=== PATIENT | male | born 1965 | race Hispanic/Latino ===

== ENCOUNTER 2017-11-03 16:12 | Inpatient (IN) | payer OTHER ==
[~2017-11-03] VITALS: Ht 172.7 cm; Wt 104.8 kg
[2017-11-03 17:00] LABS: BASOPHILS % 0.6 % (0.0-1.0); EOSINOPHILS # (AUTO) 0.2 (0.0-0.4); EOSINOPHILS % 3.2 % (0.0-6.0); HEMATOCRIT 45.1 % (38.2-49.6); HEMOGLOBIN 15.7 g/dL (14.0-18.0); LYMPHOCYTES # (AUTO) 1.6 (1.0-3.2); LYMPHOCYTES % 22.4 % (18.0-39.1); MEAN CORPUSCULAR HEMOGLOBIN 31.3 pg (28-32); MEAN CORPUSCULAR HGB CONC 34.8 g/dL (31-35); MEAN CORPUSCULAR VOLUME 89.8 fL (81-99); MONOCYTES # (AUTO) 0.4 (0.2-0.8); MONOCYTES % 5.3 % (4.4-11.3); NEUTROPHILS # (AUTO) 4.7 (2.1-6.9); NEUTROPHILS % 68.1 % (38.7-80.0); PLATELET COUNT 197 x10e3/uL (140-360); RED BLOOD COUNT 5.02 x10e6/uL (4.3-5.7); RED CELL DISTRIBUTION WIDTH 13.2 % (11.7-14.4)
[2017-11-03 17:11] LABS: ALANINE AMINOTRANSFERASE 300 IU/L (0-55); ALBUMIN 4.2 g/dL (3.5-5.0); ALBUMIN/GLOBULIN RATIO 1.1 (0.8-2.0); ALKALINE PHOSPHATASE 161 IU/L (40-150); ANION GAP 16.8 mmol/L (8-16); BLOOD UREA NITROGEN 10 mg/dL (7-26); BUN/CREATININE RATIO 11 (6-25); CARBON DIOXIDE 25 mmol/L (22-29); CHLORIDE 103 mmol/L (98-107); CREATINE KINASE 98 IU/L (30-200); CREATININE, SERUM 0.94 mg/dL (0.72-1.25); EST GLOMERULAR FILTRATION RATE > 60 ML/MIN (60-); GLUCOSE 97 mg/dL (74-118); POTASSIUM 3.8 mmol/L (3.5-5.1); SODIUM 141 mmol/L (136-145)
--- NOTE | 2017-11-03 18:29 | Diagnostic Imaging Report ---
Examination: Single AP view of the chest. COMPARISON: None. INDICATION: Hepatitis, chest pain DISCUSSION: Lines/tubes: None. Lungs: The lungs are well inflated and clear. There is no evidence of pneumonia or pulmonary edema. Pleura: There is no pleural effusion or pneumothorax. Heart and mediastinum: The heart and the mediastinum are unremarkable. Bones and soft tissues: No acute bony abnormalities. IMPRESSION: 1. No acute cardiopulmonary abnormalities. Signed by: Dr. Charlie Ojeda M.D. on 11/03/2017 6:26 PM
--- NOTE | 2017-11-03 18:55 | Diagnostic Imaging Report ---
EXAMINATION: CT of the abdomen and pelvis with contrast. TECHNIQUE: Helical CT images of the abdomen and pelvis were performed from the lung bases to the lesser trochanters after the intravenous administration of 100 cc of Isovue 300 and the oral administration of none. Coronal and sagittal reformatted images were obtained. Dose modulation, iterative reconstruction, and/or weight based adjustment of the mA/kV was utilized to reduce the radiation dose to as low as reasonably achievable. COMPARISON: None. CLINICAL HISTORY:Abdominal pain, jaundice DISCUSSION: ABDOMEN/PELVIS: LOWER THORAX:Unremarkable. HEPATOBILIARY: No focal hepatic lesions. Common bile duct mildly dilated 9 mm. Multiple gallstones within the common bile duct including adjacent to the ampulla of Vater and within the mid to distal portion measuring up to 7 mm in axial dimension. Gallstones. SPLEEN: No splenomegaly. PANCREAS: No focal masses or ductal dilatation. ADRENALS: No adrenal nodules. KIDNEYS/URETERS: Bilateral renal cysts, largest kidney 4 cm. PELVIC ORGANS/BLADDER: The bladder is normal. PERITONEUM/RETROPERITONEUM: No free air or fluid. LYMPH NODES: No intra-abdominal, retroperitoneal, pelvic or inguinal lymphadenopathy. VESSELS: Unremarkable. GI TRACT: No distention. Scattered diverticulosis. No inflammatory change. BONES AND SOFT TISSUE: No bony destructive lesions. No soft tissue abnormalities. IMPRESSION: Cholelithiasis and choledocholithiasis with multiple calcified stones in the mildly dilated common bile duct. Signed by: Dr. Charlie Ojeda M.D. on 11/03/2017 6:52 PM
[2017-11-03] MEDS ORDERED: ZANTAC 7575 MG PO (19:18)
[2017-11-03 21:27] LABS: CLARITY,URINE SL CLOUDY (CLEAR); COLOR,URINE YELLOW (YELLOW)
[2017-11-03 21:29] LABS: BILIRUBIN,URINE 1+ (NEGATIVE); KETONES,URINE NEGATIVE (NEGATIVE); LEUKOCYTE ESTERASE ,URINE NEGATIVE (NEGATIVE); NITRITE,URINE NEGATIVE (NEGATIVE); PROTEIN,URINE DIPSTICK NEGATIVE (NEGATIVE); URINE UROBILINOGEN 0.2 mg/dL (0.2 - 1)
[2017-11-03] MEDS: PIPER-TAZ 3.375 GM 50 ML IV SCH (21:44)
[2017-11-03] MEDS: HYDROMORPHONE 1MG/1ML INJ IV PRN (21:44)
[2017-11-03] MEDS: ONDANSETRON HCL INJ 2 MG/ML VIAL IV PRN (21:45)
[2017-11-03] MEDS: D5.45%NS/KCL 20MEQ 1,000 ML IV SCH (22:00)
[2017-11-03] MEDS ORDERED: IOPAMIDOL 370 MG/ML 200 ML INFUS..BTL INJ ONE (22:36)
[2017-11-03] MEDS ORDERED: SODIUM CHLORIDE 0.9% 50ML 50 ML ONE (22:36)
[2017-11-04] MEDS ORDERED: PIPER-TAZ 3.375 GM / NS 50ML IV SCH (01:00)
[2017-11-04] MEDS ORDERED: ASPIRIN EC81 MG PO (01:12)
[2017-11-04] MEDS ORDERED: LISINOPRIL10 MG PO (01:12)
[2017-11-04] MEDS: HYDROMORPHONE 1MG/1ML INJ IV PRN ×2 (06:34→13:05)
[2017-11-04] MEDS: PIPER-TAZ 3.375 GM 50 ML IV SCH ×4 (06:34→23:54)
[2017-11-04] MEDS: ONDANSETRON HCL INJ 2 MG/ML VIAL IV PRN ×2 (06:34→13:03)
[2017-11-04 06:58] LABS: BASOPHILS % 0.5 % (0.0-1.0); EOSINOPHILS # (AUTO) 0.2 (0.0-0.4); EOSINOPHILS % 3.5 % (0.0-6.0); HEMATOCRIT 41.4 % (38.2-49.6); HEMOGLOBIN 14.6 g/dL (14.0-18.0); LYMPHOCYTES # (AUTO) 1.9 (1.0-3.2); LYMPHOCYTES % 29.6 % (18.0-39.1); MEAN CORPUSCULAR HEMOGLOBIN 31.3 pg (28-32); MEAN CORPUSCULAR HGB CONC 35.3 g/dL (31-35); MEAN CORPUSCULAR VOLUME 88.7 fL (81-99); MONOCYTES # (AUTO) 0.5 (0.2-0.8); MONOCYTES % 7.8 % (4.4-11.3); NEUTROPHILS # (AUTO) 3.6 (2.1-6.9); NEUTROPHILS % 58.3 % (38.7-80.0); PLATELET COUNT 169 x10e3/uL (140-360); RED BLOOD COUNT 4.67 x10e6/uL (4.3-5.7)
[2017-11-04 07:29] LABS: ALANINE AMINOTRANSFERASE 290 IU/L (0-55); ALBUMIN 3.6 g/dL (3.5-5.0); ALBUMIN/GLOBULIN RATIO 1.1 (0.8-2.0); ALKALINE PHOSPHATASE 153 IU/L (40-150); AMYLASE 47 U/L (25-125); ANION GAP 12.1 mmol/L (8-16); BLOOD UREA NITROGEN 8 mg/dL (7-26); BUN/CREATININE RATIO 9 (6-25); CALCIUM 9.2 mg/dL (8.4-10.2); CARBON DIOXIDE 26 mmol/L (22-29); CHLORIDE 106 mmol/L (98-107); CREATININE, SERUM 0.94 mg/dL (0.72-1.25); EST GLOMERULAR FILTRATION RATE > 60 ML/MIN (60-); GLUCOSE 106 mg/dL (74-118); LIPASE 47 U/L (8-78); POTASSIUM 4.1 mmol/L (3.5-5.1); SODIUM 140 mmol/L (136-145)
--- NOTE | 2017-11-04 11:27 | Diagnostic Imaging Report ---
EXAM: Right Upper Quadrant Ultrasound INDICATION: \S\elvated lfts COMPARISON: CT abdomen and pelvis 11/03/2017 TECHNIQUE: Transverse and longitudinal images of the right upper abdomen were obtained. FINDINGS: Liver: Size: 17.7 cm in the right midclavicular line, enlarged Appearance: Increased echogenicity, smooth contour Mass: No focal masses Gallbladder: Stones/Sludge: Gallbladder lumen is full of echogenic material with shadowing, with the largest stone located in the neck measuring 0.6 cm Wall: 0.5 cm Appearance: No wall thickening, pericholecystic fluid or hydrops. Sonographic Winchester's Sign: Negative Bile Ducts: Intrahepatic Ducts: No dilatation Extrahepatic Ducts: Common bile duct measures 0.6 cm, no dilatation Pancreas: Obscured due to overlying bowel gas. Kidneys: Length: Right 11.2 cm Echogenicity: Normal Collecting System: No hydronephrosis Stone: None Cyst/Mass: None Vessels: Aorta: Visualized portions are normal Inferior Vena Cava: Visualized portions are normal Main Portal Vein: 1.2 cm, normal size with hepatopedal flow. Free Fluid: No ascites or pleural effusion IMPRESSION: 1. Cholelithiasis and mild gallbladder wall thickening. No definite sonographic evidence of acute cholecystitis. 2. Hepatomegaly with diffuse fatty infiltration. No focal lesions. Signed by: Dr. John Yanez M.D. on 11/04/2017 11:24 AM
[2017-11-04] MEDS: D5.45%NS/KCL 20MEQ 1,000 ML IV SCH ×2 (12:30→23:52)
[2017-11-04] MEDS ORDERED: GADOBENATE DIMEGLUMINE 1 ML IV ONE (12:49)
--- NOTE | 2017-11-04 14:52 | Diagnostic Imaging Report ---
EXAMINATION: MRI Abdomen with and without contrast. TECHNIQUE: Axial T1 nonfat sat in and out of phase, axial T2 fat sat, coronal T2 nonfat sat, axial DWI and ADC MR images of the abdomen were obtained before and after the administration of 20 cc of gadolinium. Axial T1 fat sat GRE dynamic images in precontrast, arterial, venous and delayed phases were obtained. Heavily T2-weighted MRCP images were also performed, including thick and thin slab MRCP ASSETT, 3-D breath-hold FRFSE and 3-D reconstructions. CLINICAL HISTORY:Suspected CBD stone, abdominal pain COMPARISON: CT abdomen and pelvis 11/03/2017 FINDINGS: Exam is markedly limited due to breathing motion artifact/patient unable to hold breath. LOWER THORAX: Unremarkable. LIVER: The hepatic size and contour are normal.. No hepatic signal abnormality. No focal hepatic lesions. BILIARY: No intrahepatic biliary ductal dilation. The common bile duct is in the upper limit of normal in caliber, measuring approximately 6 mm at the raj hepatis and 4 mm at the pancreatic head (series 11, image 19-20). Normal luminal contour.. Layering 7 mm filling defect in the distal portion of the CBD proximal to the ampulla (series 10, image 98), likely corresponding to the previously visualized intraluminal stone on CT dated 11/03/2017. No other filling defects are noted. Gallbladder lumen is filled with T2 hypointense material, likely representing a combination of stones and sludge, with a 1.6 cm T2 hypointense oval-shaped stone (series 6, image 21). No wall thickening or pericholecystic fluid. PANCREAS: No mass or ductal dilatation. SPLEEN: No splenomegaly. ADRENALS: No nodules. KIDNEYS: No hydronephrosis or solid enhancing mass in the imaged portion of the kidneys. Stable 2.3 cm T2 hyperintense, T1 hypointense nonenhancing simple cyst in the interpolar left kidney (series 5, image 30). PERITONEUM / RETROPERITONEUM: No upper abdominal free fluid. GI TRACT: Visualized bowel shows no dilation or obstruction. LYMPH NODES: No upper abdominal lymphadenopathy. VESSELS: The celiac trunk, superior and inferior mesenteric and bilateral renal arteries are patent. The portal, superior mesenteric and splenic veins are patent. No collateral circulation. BONES AND SOFT TISSUES: No abnormal bone marrow signal. No soft tissue abnormalities. IMPRESSION: 1. Layering 7 mm filling defect in the distal portion of the CBD proximal to the ampulla likely corresponds to the previously visualized intraluminal stone on CT dated 11/03/2017. No other CBD intraluminal filling defects are noted. 2. Cholelithiasis, without MR evidence of cholecystitis. 3. Common bile duct is at the upper limit of normal. No intrahepatic biliary ductal dilation. Signed by: Dr. John Yanez M.D. on 11/04/2017 2:48 PM
[2017-11-04 16:51] VITALS: BP 138/77
[2017-11-04 17:28] VITALS: BP 138/77
--- NOTE | 2017-11-04 19:40 | Consultation ---
DATE OF CONSULTATION: November 04, 2017 This is a 52-year-old gentleman who presented to the hospital because of some abdominal pain and jaundice for 3 days. The patient denies any fever or chills along with this problem. His workup so far revealed that he is jaundiced with bilirubin of 8.9, AST 144 and ALT 290 and alkaline phosphatase 153. His CBC appears to be normal. He did have an abdominal ultrasound which showed cholelithiasis with hepatomegaly and fatty liver. He had MRCP which showed 7 mm filling defect in the distal common bile duct likely secondary to stone. He also had a CAT scan of the abdomen and pelvis which showed again cholelithiasis with choledocholithiasis. His other medical problems are significant for hyperlipidemia. ALLERGIES: NONE. SOCIAL HISTORY: No alcohol use. FAMILY HISTORY: Noncontributory. REVIEW OF SYSTEMS: Denies any chest pain. No shortness of breath. Denies any dysphagia or odynophagia. Denies any dysuria or hematuria or any kind of syncopal episode. PHYSICAL EXAMINATION GENERAL: The patient is awake, alert, appears to be stable and not in any acute distress. VITAL SIGNS: Afebrile with stable vital signs. HEENT: Normocephalic, atraumatic. Sclerae anicteric. NECK: Supple. HEART: Sounds regular. LUNGS: Clear. ABDOMEN: Soft. There is some tenderness at the epigastric area. No rebound or mass. EXTREMITIES: No edema or clubbing. LABORATORY DATA: CBC appears to be okay. Bilirubin 8.3. AST 144, ALT 290, alkaline phosphatase 153. Ultrasound, CAT scan and MRCP as noted before. ASSESSMENT: Abdominal pain. The patient has gallstone with likely choledocholithiasis. Liver enzymes elevated. RECOMMENDATIONS: We will proceed with ERCP for further evaluation. Then the patient will need to have cholecystectomy. Job#: [id number] GH cc:NIKKI ARCE MD
[2017-11-04 20:00] VITALS: BP 138/77
[2017-11-04 20:45] VITALS: BP 152/76
[2017-11-05] VITALS (8 sets, daily range): BP systolic 112–151; BP diastolic 58–70
[2017-11-05] MEDS: PIPER-TAZ 3.375 GM 50 ML IV SCH ×3 (05:36→18:50)
[2017-11-05 05:47] LABS: HEMATOCRIT 41.2 % (38.2-49.6); HEMOGLOBIN 14.3 g/dL (14.0-18.0); MEAN CORPUSCULAR HEMOGLOBIN 31.2 pg (28-32); MEAN CORPUSCULAR HGB CONC 34.7 g/dL (31-35); MEAN CORPUSCULAR VOLUME 89.8 fL (81-99); PLATELET COUNT 174 x10e3/uL (140-360); RED BLOOD COUNT 4.59 x10e6/uL (4.3-5.7); RED CELL DISTRIBUTION WIDTH 13.2 % (11.7-14.4)
[2017-11-05 05:56] LABS: INR 1.04; PROTHROMBIN TIME 12.8 seconds (11.9-14.5)
[2017-11-05 06:03] LABS: ALANINE AMINOTRANSFERASE 288 IU/L (0-55); ALBUMIN 3.4 g/dL (3.5-5.0); ALBUMIN/GLOBULIN RATIO 1.1 (0.8-2.0); ALKALINE PHOSPHATASE 158 IU/L (40-150); ANION GAP 11.9 mmol/L (8-16); BLOOD UREA NITROGEN 7 mg/dL (7-26); BUN/CREATININE RATIO 6 (6-25); CALCIUM 9.3 mg/dL (8.4-10.2); CARBON DIOXIDE 26 mmol/L (22-29); CHLORIDE 105 mmol/L (98-107); CREATININE, SERUM 1.13 mg/dL (0.72-1.25); EST GLOMERULAR FILTRATION RATE > 60 ML/MIN (60-); GLUCOSE 108 mg/dL (74-118); POTASSIUM 3.9 mmol/L (3.5-5.1); SODIUM 139 mmol/L (136-145)
[2017-11-05] MEDS ORDERED: HYDRALAZINE HCL 20 MG/ML VIAL IV PRN (06:15)
[2017-11-05 07:12] LABS: EOSINOPHILS % (MANUAL) 5 % (0-7); LYMPHOCYTES % (MANUAL) 36 % (19-48); MONOCYTES % (MANUAL) 5 % (3.4-9.0); NEUTROPHILS % (MANUAL) 52 % (40-74)
[2017-11-05 07:13] LABS: PLATELET ESTIMATE ADEQUATE; PLATELET MORPHOLOGY COMMENT NORMAL; RBC MORPHOLOGY COMMENT NORMAL
[2017-11-05] MEDS ORDERED: IOPAMIDOL 200 MG/ML 20 ML VIAL IT ONE (07:42)
[2017-11-05] MEDS ORDERED: BENZOCAINE/TETRACAINE/BUTAMBEN AERO SPRAY 56 GM CAN ONE (07:42)
[2017-11-05] MEDS ORDERED: INDOMETHACIN 50 MG SUPP.RECT RC ONE (08:59)
[2017-11-05] MEDS: LACTATED RINGER'S 1,000 ML IV SCH ×2 (10:41→18:50)
[2017-11-05] MEDS: HYDROMORPHONE 1MG/1ML INJ IV PRN ×3 (11:08→20:07)
[2017-11-05] MEDS ORDERED: LABETALOL HCL 5 MG/ML 20ML VIAL ONE (17:03)
[2017-11-05] MEDS ORDERED: GLUCAGON FOR INJ 1 MG VIAL ONE (17:03)
[2017-11-05] MEDS ORDERED: PROPOFOL IV EMULSION 10 MG/ML 20 ML VIAL ONE (17:03)
[2017-11-05] MEDS ORDERED: KETAMINE HCL INJ 50 MG/ML 10 ML VIAL ONE (18:09)
[2017-11-05] MEDS ORDERED: MIDAZOLAM HCL 2 MG/2 ML VIAL ONE (18:09)
[2017-11-05] MEDS ORDERED: FENTANYL CITRATE/PF 100MCG/2 ML INJ ONE (18:09)
[2017-11-05] MEDS: ONDANSETRON HCL INJ 2 MG/ML VIAL IV PRN (19:59)
[2017-11-06] VITALS (9 sets, daily range): BP systolic 128–148; BP diastolic 57–81
[2017-11-06] MEDS: PIPER-TAZ 3.375 GM 50 ML IV SCH ×5 (00:22→23:42)
[2017-11-06] MEDS: ONDANSETRON HCL INJ 2 MG/ML VIAL IV PRN ×4 (00:30→20:02)
[2017-11-06] MEDS: HYDROMORPHONE 1MG/1ML INJ IV PRN ×5 (00:35→20:03)
[2017-11-06] MEDS: LACTATED RINGER'S 1,000 ML IV SCH ×3 (03:14→18:14)
[2017-11-06 05:41] LABS: BASOPHILS % 0.2 % (0.0-1.0); EOSINOPHILS # (AUTO) 0.1 (0.0-0.4); EOSINOPHILS % 0.7 % (0.0-6.0); HEMATOCRIT 43.6 % (38.2-49.6); HEMOGLOBIN 15.3 g/dL (14.0-18.0); LYMPHOCYTES # (AUTO) 1.3 (1.0-3.2); LYMPHOCYTES % 15.1 % (18.0-39.1); MEAN CORPUSCULAR HEMOGLOBIN 31.4 pg (28-32); MEAN CORPUSCULAR HGB CONC 35.1 g/dL (31-35); MEAN CORPUSCULAR VOLUME 89.3 fL (81-99); MONOCYTES # (AUTO) 0.6 (0.2-0.8); MONOCYTES % 6.8 % (4.4-11.3); NEUTROPHILS # (AUTO) 6.8 (2.1-6.9); NEUTROPHILS % 76.9 % (38.7-80.0); PLATELET COUNT 187 x10e3/uL (140-360); RED BLOOD COUNT 4.88 x10e6/uL (4.3-5.7); RED CELL DISTRIBUTION WIDTH 13.3 % (11.7-14.4)
[2017-11-06 06:01] LABS: ALANINE AMINOTRANSFERASE 285 IU/L (0-55); ALBUMIN 3.2 g/dL (3.5-5.0); ALBUMIN/GLOBULIN RATIO 1.1 (0.8-2.0); ALKALINE PHOSPHATASE 169 IU/L (40-150); ANION GAP 13.9 mmol/L (8-16); BLOOD UREA NITROGEN 13 mg/dL (7-26); BUN/CREATININE RATIO 13 (6-25); CALCIUM 8.9 mg/dL (8.4-10.2); CARBON DIOXIDE 26 mmol/L (22-29); CHLORIDE 104 mmol/L (98-107); CREATININE, SERUM 1.01 mg/dL (0.72-1.25); EST GLOMERULAR FILTRATION RATE > 60 ML/MIN (60-); GLUCOSE 110 mg/dL (74-118); POTASSIUM 3.9 mmol/L (3.5-5.1); SODIUM 140 mmol/L (136-145)
[2017-11-06 06:15] LABS: ALBUMIN 3.1 g/dL (3.5-5.0); BILIRUBIN,DIRECT 4.5 mg/dL (0.0-0.5)
[2017-11-06] MEDS ORDERED: BUPIVACAINE 0.25%/EPI 30ML SDV INJ ONE (07:57)
--- NOTE | 2017-11-06 09:48 | Operative Report ---
DATE OF PROCEDURE: November 06, 2017 PREOPERATIVE DIAGNOSIS: Cholecystitis. POSTOPERATIVE DIAGNOSIS: Cholecystitis. OPERATIVE PROCEDURE: Laparoscopic cholecystectomy. ANESTHESIA: General endotracheal, Dr. Borges. INDICATIONS FOR SURGERY: The patient is a 52-year-old male with a history of abdominal pain and gallstones seen. The patient also had a bile duct stone, which was removed by ERCP. The patient then consented for laparoscopic cholecystectomy. Attendant risks discussed. PROCEDURE FINDINGS: Large stone in the neck of the gallbladder. DESCRIPTION OF PROCEDURE: Patient was brought to the or intubated. Abdomen prepped with alcohol and draped in a sterile fashion. A supraumbilical incision is made. A 10-mm port was inserted. Insufflation begun. Under direct vision, other port sites placed in the midepigastric and right upper quadrant. Gallbladder chronically inflamed. Fundus retracted in cephalad direction. Neck of the gallbladder retracted laterally. With blunt and sharp dissection, the cystic artery is isolated, triple clipped and divided. Cystic duct was dissected down toward the junction of the common bile duct and cystic duct. Noted to be mildly dilated to 6 mm, and then triple clipped a centimeter away from the junction. The cystic duct divided between clips. Gallbladder detached from liver with cautery and taken out through the umbilical port site. Operative field was irrigated. Hemostasis achieved. All ports removed under direct vision. Fascia was closed with 0 Vicryl. Skin closed with subcuticular stitch. Patient was extubated and transported to the recovery room. Estimated blood loss 10 mL. Job#: [id number] MA
[2017-11-06] MEDS ORDERED: FENTANYL CITRATE/PF 100MCG/2 ML INJ ONE (15:09)
[2017-11-06] MEDS ORDERED: DEXAMETHASONE SOD PHOS INJ 4 MG/ML VIAL ONE (15:09)
[2017-11-06] MEDS ORDERED: PROPOFOL IV EMULSION 10 MG/ML 20 ML VIAL ONE (15:09)
[2017-11-06] MEDS ORDERED: KETOROLAC TROMETHAMINE 30 MG/ML VIAL ONE (15:09)
[2017-11-06] MEDS ORDERED: MIDAZOLAM HCL 2 MG/2 ML VIAL ONE (15:09)
[2017-11-06] MEDS ORDERED: LIDOCAINE HCL 2% LOCAL INJ 5 ML SDV VIAL INJ ONE (15:09)
[2017-11-06] MEDS ORDERED: CEFOXITIN SOD 1 GM VIAL ONE (15:09)
[2017-11-06] MEDS ORDERED: SEVOFLURANE INHAL SOLN 250 ML PEN BTL ONE ×2 (15:09)
[2017-11-06] MEDS ORDERED: ONDANSETRON HCL INJ 2 MG/ML VIAL ONE (15:09)
[2017-11-06] MEDS ORDERED: KETAMINE HCL INJ 50 MG/ML 10 ML VIAL ONE (15:09)
[2017-11-06] MEDS ORDERED: ROCURONIUM BROMIDE 10 MG/ML 5ML VIAL ONE (15:09)
--- NOTE | 2017-11-06 19:34 | Progress Note ---
DATE: November 06, 2017 SUBJECTIVE: Patient reports postsurgical pain. He has had a laparoscopic cholecystectomy today. He has been allowed oral diet, which he is tolerating very well. He is passing flatus also. REVIEW OF SYSTEMS GENERAL: No fever or chills. CVS: No chest pain, palpitation. RESPIRATORY: No cough or expectoration. MEDICATIONS: Reviewed as per MAR. He is getting intravenous piperacillin/tazobactam intravenously along with other medications. PHYSICAL EXAMINATION VITAL SIGNS: Temperature 99.5, pulse 96, respiration 18, blood pressure 148/77, oxygen saturation 91% on 2 L of nasal cannula. GENERAL: Not in any acute distress. Oral mucosa is moist. HEENT: Bilaterally icteric sclerae. ABDOMEN: Soft. Palpable incisional tenderness at the right upper quadrant. No rebound rigidity. Bowel sounds minimal. LABS: Liver enzymes still elevated with total bilirubin has just come down to 7.5 from 8.4, AST 123 from 120, ALT 285 from 288, alkaline phosphatase 169 from 158. WBC has gone up to 8.81 from 4.64, hemoglobin 15.3, hematocrit 43.6, MCV 89.3, platelet count 187,000. IMPRESSIONS 1. Choledocholithiasis, status post endoscopic retrograde cholangiopancreatography, and sphincterotomy with stone removal. 2. Laparoscopic cholecystectomy with the impacted stone at the neck of the gallbladder. PLAN: Postop care as per surgery. Monitor liver enzymes. The liver enzymes sometimes remains elevated even after ductal clearance from ERCP secondary to instrumentation. Therefore, will continue to trend the liver enzymes. Job#: [id number] CQ
[2017-11-06] MEDS: ACETAMINOPHEN 325 MG TAB PO PRN (21:23)
[2017-11-07] VITALS (7 sets, daily range): BP systolic 127–157; BP diastolic 58–82
[2017-11-07] MEDS: ONDANSETRON HCL INJ 2 MG/ML VIAL IV PRN ×4 (02:06→17:45)
[2017-11-07] MEDS: HYDROMORPHONE 1MG/1ML INJ IV PRN ×4 (02:06→17:45)
[2017-11-07] MEDS: LACTATED RINGER'S 1,000 ML IV SCH ×3 (03:30→22:48)
[2017-11-07] MEDS: PIPER-TAZ 3.375 GM 50 ML IV SCH ×3 (05:43→17:56)
[2017-11-07 06:18] LABS: ALBUMIN 2.8 g/dL (3.5-5.0); BILIRUBIN,DIRECT 5.9 mg/dL (0.0-0.5)
[2017-11-07] MEDS: ACETAMINOPHEN 325 MG TAB PO PRN ×3 (08:52→23:09)
[2017-11-07] MEDS: HYDROCODONE/APAP 5MG-325MG TAB PO PRN (15:17)
[2017-11-07 20:18] LABS: BASOPHILS % 0.3 % (0.0-1.0); EOSINOPHILS # (AUTO) 0.1 (0.0-0.4); EOSINOPHILS % 0.9 % (0.0-6.0); HEMATOCRIT 30.8 % (38.2-49.6); HEMOGLOBIN 10.6 g/dL (14.0-18.0); LYMPHOCYTES # (AUTO) 1.4 (1.0-3.2); LYMPHOCYTES % 13.7 % (18.0-39.1); MEAN CORPUSCULAR HEMOGLOBIN 31.6 pg (28-32); MEAN CORPUSCULAR HGB CONC 34.4 g/dL (31-35); MEAN CORPUSCULAR VOLUME 91.9 fL (81-99); MONOCYTES # (AUTO) 0.8 (0.2-0.8); MONOCYTES % 7.5 % (4.4-11.3); NEUTROPHILS # (AUTO) 7.9 (2.1-6.9); NEUTROPHILS % 76.8 % (38.7-80.0); PLATELET COUNT 140 x10e3/uL (140-360); RED BLOOD COUNT 3.35 x10e6/uL (4.3-5.7); RED CELL DISTRIBUTION WIDTH 13.8 % (11.7-14.4)
[2017-11-07 20:31] LABS: INR 1.18; PROTHROMBIN TIME 14.1 seconds (11.9-14.5)
[2017-11-07 20:37] LABS: ANION GAP 12.7 mmol/L (8-16); BLOOD UREA NITROGEN 11 mg/dL (7-26); BUN/CREATININE RATIO 13 (6-25); CALCIUM 8.3 mg/dL (8.4-10.2); CARBON DIOXIDE 25 mmol/L (22-29); CHLORIDE 103 mmol/L (98-107); CREATININE, SERUM 0.82 mg/dL (0.72-1.25); EST GLOMERULAR FILTRATION RATE > 60 ML/MIN (60-); GLUCOSE 122 mg/dL (74-118); POTASSIUM 3.7 mmol/L (3.5-5.1); SODIUM 137 mmol/L (136-145)
[2017-11-07] MEDS: PANTOPRAZOLE INJ 40 MG in SODIUM CHLORIDE 0.9% 50ML 50 ML IV SCH (21:17)
--- NOTE | 2017-11-07 22:23 | Progress Note ---
DATE: November 07, 2017 GI PROGRESS REPORT SUBJECTIVE: Patient has had 2 bouts of melena today, one was in the morning, another one was at 6 p.m. He is complaining of some incisional pain. He underwent laparoscopic cholecystectomy on Tuesday. REVIEW OF SYSTEMS: GENERAL: No fever or chills. CVS: No chest pain, palpitation. RESPIRATORY: No cough or expectoration. MEDICATIONS: Reviewed, as per MAR, he is getting intravenous piperacillin along with other medications. PHYSICAL EXAMINATION: VITAL SIGNS: Temperature 101.4, respiration 18, blood pressure 157/80 to 145/82, pulse 94, oxygen saturation 94% on room air. GENERAL: Not in any acute distress. HEENT: Oral mucosa is moist. Anicteric sclerae. ABDOMEN: Soft. Right upper quadrant incisional tenderness without rebound, rigidity, or guarding. Positive bowel sounds. LABS: Hemoglobin has dropped from 15.3 to 10.6, WBC has gone up from 8.81 to 10.30, hematocrit 30.8, platelet count 140,000. Electrolytes normal. BUN 11 down from 13, creatinine 0.82. Liver enzymes showed total bilirubin has gone up to 8.8 from 7.5, AST down to 102 from 123, ALT 247 from 284, alkaline phosphatase 150 from 169. IMPRESSION: 1. Likely post sphincterotomy bleeding, hemodynamically stable. 2. Liver enzymes still elevated, it is likely that common bile duct may still be blocked secondary to blood clot. PLAN: Start Protonix infusion. NPO. Continue IV antibiotics. ERCP to check sphincterotomy site as well as for ductal clearance tomorrow. Job#: [id number]
[2017-11-08] VITALS (7 sets, daily range): BP systolic 136–160; BP diastolic 74–87
[2017-11-08] MEDS: PIPER-TAZ 3.375 GM 50 ML IV SCH ×4 (00:12→17:44)
[2017-11-08] MEDS: ONDANSETRON HCL INJ 2 MG/ML VIAL IV PRN ×6 (00:23→20:29)
[2017-11-08] MEDS: PANTOPRAZOLE INJ 40 MG in SODIUM CHLORIDE 0.9% 50ML 50 ML IV SCH ×5 (02:16→20:29)
[2017-11-08] MEDS: HYDROMORPHONE 1MG/1ML INJ IV PRN ×5 (02:16→20:29)
[2017-11-08] MEDS: LACTATED RINGER'S 1,000 ML IV SCH ×2 (02:18→10:30)
[2017-11-08 06:24] LABS: BASOPHILS # (AUTO) 0.1 (0.0-0.1); BASOPHILS % 0.4 % (0.0-1.0); EOSINOPHILS # (AUTO) 0.2 (0.0-0.4); HEMATOCRIT 31.3 % (38.2-49.6); HEMOGLOBIN 10.6 g/dL (14.0-18.0); LYMPHOCYTES # (AUTO) 1.9 (1.0-3.2); LYMPHOCYTES % 16.8 % (18.0-39.1); MEAN CORPUSCULAR HEMOGLOBIN 31.2 pg (28-32); MEAN CORPUSCULAR HGB CONC 33.9 g/dL (31-35); MEAN CORPUSCULAR VOLUME 92.1 fL (81-99); MONOCYTES # (AUTO) 0.9 (0.2-0.8); MONOCYTES % 8.1 % (4.4-11.3); NEUTROPHILS # (AUTO) 8.3 (2.1-6.9); NEUTROPHILS % 71.9 % (38.7-80.0); PLATELET COUNT 140 x10e3/uL (140-360); RED CELL DISTRIBUTION WIDTH 13.6 % (11.7-14.4)
[2017-11-08 07:20] LABS: BILIRUBIN,DIRECT 6.1 mg/dL (0.0-0.5)
[2017-11-08] MEDS ORDERED: IOPAMIDOL 300MG/ML 50ML INFUS..BTL IV ONE (07:22)
[2017-11-08] MEDS ORDERED: EPINEPHRINE HCL INJ 1 MG/ML AMP ONE (07:48)
[2017-11-08] MEDS ORDERED: GLUCAGON FOR INJ 1 MG VIAL ONE (08:07)
[2017-11-08] MEDS: ACETAMINOPHEN 325 MG TAB PO PRN ×2 (09:20→20:13)
[2017-11-08] MEDS ORDERED: GADOBENATE DIMEGLUMINE 1 ML IV ONE (11:50)
--- NOTE | 2017-11-08 12:26 | Diagnostic Imaging Report ---
EXAMINATION: CT of the abdomen and pelvis with contrast. TECHNIQUE: Spiral CT images of the abdomen and pelvis were performed from the lung bases to the lesser trochanters after the intravenous administration of 100 cc of Isovue 370 and the oral administration of water. Coronal and sagittal reformatted images were obtained. COMPARISON: MRCP 11/04/2017, gallbladder ultrasound 11/04/2017, CT abdomen and pelvis 11/03/2014 CLINICAL HISTORY:Choledocholithiasis, abdominal pain DISCUSSION: ABDOMEN/PELVIS: LOWER THORAX:Bilateral basal wedge-shaped consolidations with air bronchograms, likely representing atelectatic changes. Trace bilateral pleural effusions. HEPATOBILIARY: No focal hepatic lesions. No intra or extrahepatic biliary ductal dilation. The previously visualized radiopaque filling defects in the common bile duct are not seen on the current exam. Mild pneumobilia GALLBLADDER: Interval cholecystectomy. Mild stranding in the region of the gallbladder fossa SPLEEN: No splenomegaly. PANCREAS: No focal masses or ductal dilatation. ADRENALS: No adrenal nodules. KIDNEYS/URETERS: No hydronephrosis, stones, or solid mass lesions. Stable 2.3 cm simple cyst in the left kidney PELVIC ORGANS/BLADDER: Bladder is unremarkable. PERITONEUM/RETROPERITONEUM: No free air or free fluid. There is mild stranding of the central mesentery (series 2, image 39. No well-defined fluid collections. LYMPH NODES: No intra-abdominal, retroperitoneal, pelvic or inguinal lymphadenopathy. VESSELS: The celiac trunk,superior and inferior mesenteric and bilateral renal arteries are patent The portal, superior mesenteric and splenic veins are patent. GI TRACT: No bowel dilation or evidence of obstruction. Appendix is well identified and normal in caliber. Punctate appendicolith is noted in the appendiceal lumen (series 2, image 71). BONES AND SOFT TISSUE: No aggressive lytic lesions No soft tissue abnormalities. IMPRESSION: 1. Interval cholecystectomy with mild stranding in the region of the gallbladder fossa and central mesentery, which may reflect postoperative changes. No pneumoperitoneum, significant free fluid or well-defined fluid collections. No bowel dilation or evidence of obstruction. 2. Previously visualized stones in the CBD are not seen on the current exam. 3. Bilateral trace pleural effusions and bilateral wedge-shaped consolidations with air bronchograms, likely representing atelectasis, however, aspiration or pneumonia could be considered, in the appropriate clinical setting. Signed by: Dr. John Yanez M.D. on 11/08/2017 12:22 PM
[2017-11-08] MEDS ORDERED: LIDOCAINE HCL 2% LOCAL INJ 5 ML SDV VIAL INJ ONE (12:51)
[2017-11-08] MEDS ORDERED: ROCURONIUM BROMIDE 10 MG/ML 5ML VIAL ONE (12:51)
[2017-11-08] MEDS ORDERED: PROPOFOL IV EMULSION 10 MG/ML 20 ML VIAL ONE (12:51)
[2017-11-08] MEDS ORDERED: ONDANSETRON HCL INJ 2 MG/ML VIAL ONE (12:51)
[2017-11-08] MEDS ORDERED: ACETAMINOPHEN 1000 MG/100 ML IV ONE (12:51)
[2017-11-08] MEDS ORDERED: SEVOFLURANE INHAL SOLN 250 ML PEN BTL ONE (12:51)
--- NOTE | 2017-11-08 14:09 | Diagnostic Imaging Report ---
EXAMINATION: MRI Abdomen with and without contrast/MRCP. TECHNIQUE:Axial T1 nonfat sat in and out of phase, axial T2 fat sat, coronal T2 nonfat sat, axial DWI and ADC MR images of the abdomen were obtained before and after the administration of cc of gadolinium. Axial T1 fat sat GRE dynamic images in precontrast, arterial, venous and delayed phases were obtained. CLINICAL HISTORY:Abdominal pain, blood in stool, jaundice, previous choledocholithiasis COMPARISON: CT abdomen and pelvis 11/08/2017, MRI 11/04/2017 LOWER THORAX: Bilateral basal wedge-shaped consolidations with air bronchograms, likely representing atelectatic changes. Trace bilateral pleural effusions. LIVER: The hepatic size and contour are normal.. No hepatic signal abnormality. No focal hepatic lesions. BILIARY: No intrahepatic biliary ductal dilation. Common bile duct is normal in caliber, measuring 5 m at the raj hepatis and 4 mm at the pancreatic head. No intraluminal filling defects. Normal luminal contour and tapering to the ampulla. Interval cholecystectomy. Mild T2 hyperintensity in the region of the gallbladder fossa likely representing edema. PANCREAS: No mass or ductal dilatation. SPLEEN: No splenomegaly. ADRENALS: No nodules. KIDNEYS: No hydronephrosis or solid enhancing mass in the imaged portion of the kidneys. Stable 2.3 cm T2 hyperintense, T1 hypointense nonenhancing simple cyst in the interpolar left kidney (series 6, image 31). Trace left perinephric fluid. PERITONEUM / RETROPERITONEUM: No upper abdominal free fluid. GI TRACT: Visualized bowel shows no dilation or obstruction. LYMPH NODES: No upper abdominal lymphadenopathy. VESSELS: The celiac trunk, superior and inferior mesenteric and bilateral renal arteries are patent. The portal, superior mesenteric and splenic veins are patent. No collateral circulation. BONES AND SOFT TISSUES: No abnormal bone marrow signal. No soft tissue abnormalities. IMPRESSION: 1. Interval resolution of previously visualized cholelithiasis. No intra or extrahepatic biliary ductal dilation. No CBD filling defects. 2. Interval cholecystectomy with expected post operative changes in the gallbladder fossa. No fluid collections. 3. Bilateral basal wedge-shaped consolidations with air bronchograms, likely representing atelectatic changes. Trace bilateral pleural effusions. Signed by: Dr. John Yanez M.D. on 11/08/2017 2:05 PM
[2017-11-08] MEDS ORDERED: FUROSEMIDE INJ 10 MG/ML 2 ML VIAL IV NR (14:30)
[2017-11-08] MEDS ORDERED: IOPAMIDOL 370 MG/ML 200 ML INFUS..BTL INJ ONE (18:19)
[2017-11-08] MEDS ORDERED: SODIUM CHLORIDE 0.9% 50ML 50 ML ONE (18:19)
[2017-11-08] MEDS ORDERED: MIDAZOLAM HCL 2 MG/2 ML VIAL ONE (19:11)
[2017-11-08] MEDS ORDERED: FENTANYL CITRATE/PF 100MCG/2 ML INJ ONE (19:11)
[2017-11-09] VITALS (8 sets, daily range): BP systolic 127–154; BP diastolic 65–85
[2017-11-09] MEDS: PIPER-TAZ 3.375 GM 50 ML IV SCH ×5 (00:13→23:42)
[2017-11-09] MEDS: HYDROMORPHONE 1MG/1ML INJ IV PRN ×5 (00:14→19:29)
[2017-11-09] MEDS: ONDANSETRON HCL INJ 2 MG/ML VIAL IV PRN ×4 (00:14→15:05)
[2017-11-09] MEDS: ACETAMINOPHEN 325 MG TAB PO PRN ×2 (02:54→19:55)
[2017-11-09] MEDS: PANTOPRAZOLE INJ 40 MG in SODIUM CHLORIDE 0.9% 50ML 50 ML IV SCH ×5 (03:39→20:10)
[2017-11-09 06:03] LABS: BASOPHILS % 0.4 % (0.0-1.0); EOSINOPHILS # (AUTO) 0.3 (0.0-0.4); EOSINOPHILS % 2.5 % (0.0-6.0); HEMATOCRIT 29.6 % (38.2-49.6); HEMOGLOBIN 10.2 g/dL (14.0-18.0); LYMPHOCYTES # (AUTO) 1.5 (1.0-3.2); LYMPHOCYTES % 14.8 % (18.0-39.1); MEAN CORPUSCULAR HEMOGLOBIN 31.5 pg (28-32); MEAN CORPUSCULAR HGB CONC 34.5 g/dL (31-35); MEAN CORPUSCULAR VOLUME 91.4 fL (81-99); MONOCYTES # (AUTO) 0.8 (0.2-0.8); MONOCYTES % 7.5 % (4.4-11.3); NEUTROPHILS # (AUTO) 7.5 (2.1-6.9); NEUTROPHILS % 74.2 % (38.7-80.0); PLATELET COUNT 166 x10e3/uL (140-360); RED BLOOD COUNT 3.24 x10e6/uL (4.3-5.7); RED CELL DISTRIBUTION WIDTH 13.6 % (11.7-14.4)
[2017-11-09 06:22] LABS: ALANINE AMINOTRANSFERASE 153 IU/L (0-55); ALBUMIN 2.8 g/dL (3.5-5.0); ALBUMIN/GLOBULIN RATIO 0.8 (0.8-2.0); ALKALINE PHOSPHATASE 147 IU/L (40-150); ANION GAP 12.5 mmol/L (8-16); BLOOD UREA NITROGEN 8 mg/dL (7-26); BUN/CREATININE RATIO 10 (6-25); CALCIUM 8.9 mg/dL (8.4-10.2); CARBON DIOXIDE 26 mmol/L (22-29); CHLORIDE 96 mmol/L (98-107); CREATININE, SERUM 0.82 mg/dL (0.72-1.25); EST GLOMERULAR FILTRATION RATE > 60 ML/MIN (60-); GLUCOSE 106 mg/dL (74-118); POTASSIUM 3.5 mmol/L (3.5-5.1); SODIUM 131 mmol/L (136-145)
--- NOTE | 2017-11-09 09:05 | Diagnostic Imaging Report ---
PROCEDURE:ERCP TO BE READ TECHNIQUE:Contrast material was injected retrograde into the biliary tree without a radiologist present. INDICATION:Choledocholithiasis COMPARISON:None. FINDINGS: A guidewire is noted traversing the common hepatic and common bile duct and terminating within the right intrahepatic biliary system. Contrast injection shows multiple filling defects within the common bile duct in keeping with choledocholithiasis as shown on prior CT. Later images show a balloon inflated in the distal common bile duct. Remaining images are markedly degraded by motion artifact. CONCLUSION: Fluoroscopic images from ERCP as above. Refer to operative report for further details. Dictated by: Enrique Gutierrez M.D. on 11/09/2017 at 9:12 Electronically approved by: Enrique Gtuierrez M.D. on 11/09/2017 at 9:12
[2017-11-09] MEDS ORDERED: IOPAMIDOL 300MG/ML 50ML INFUS..BTL IV ONE (11:30)
--- NOTE | 2017-11-09 22:17 | Progress Note ---
DATE: November 09, 2017 SUBJECTIVE: The patient reports incisional pain. He has not had any bowel movements since yesterday. No nausea, vomiting. Tolerating full liquid diet. REVIEW OF SYSTEMS GENERAL: No fever or chills. RESPIRATORY: No cough or expectoration. CVS: No chest pain or palpitation. MEDICATIONS: MAR reviewed. He is still getting pantoprazole gtt along with intravenous Zosyn. PHYSICAL EXAMINATION VITAL SIGNS: Temperature 100.5, pulse 92, respirations 20, blood pressure 144/67, oxygen saturation 94% on room air. GENERAL: Not in any acute distress. Oral mucosa is moist. Anicteric sclerae. CVS: S1, S2. Regular. LUNGS: Bilaterally grossly clear. ABDOMEN: Soft, nondistended. Palpable incisional tenderness in right upper quadrant. No rebound, rigidity or guarding. Positive bowel sounds. EXTREMITIES: Warm. No leg edema. LABS: WBC has come down to 10.11 from 11.55, hemoglobin 10.2 from 10.6, hematocrit 29.6 from 31.3, platelet count 166,000. Sodium 131, potassium 3.5, chloride 96, bicarb 26, BUN 8, creatinine 0.82, glucose 106. Liver enzymes showed total bilirubin has come down to 7.3 from 9.4, AST 43 from 65, ALT 153 from 199, alkaline phosphatase 147 from 156. IMPRESSION 1. Liver enzymes trending down. It is likely that the patient has had postsphincterotomy blood clot that might have passed spontaneously. 2. There is a remote possibility of common bile duct stone. 3. Possibility of stone spilling over into common bile duct during cholecystectomy. 4. Postsphincterotomy bleeding has ceased. Hemoglobin remains stable. The patient is not having any bowel movement in last 24 hours. This further ensures that the patient is not having any active gastrointestinal bleeding. Upper endoscopy performed yesterday showed sphincterotomy site with some inflammation without any stigmata of bleeding. 5. Postoperative fever. I do not suspect any offending cholangitis. PLAN: Change Protonix gtt to IV twice daily. Continue full liquid diet. Repeat CBC as well a liver enzymes tomorrow. N.p.o. past midnight. Repeat ERCP to ensure ductal clearance. Discussed with Dr. Birch. Job#: [id number] ALLY
[2017-11-10] VITALS: BP 106/50
[2017-11-10] MEDS: HYDROCODONE/APAP 5MG-325MG TAB PO PRN (00:12)
[2017-11-10] MEDS: PANTOPRAZOLE INJ 40 MG in SODIUM CHLORIDE 0.9% 50ML 50 ML IV SCH ×2 (02:52→07:51)
[2017-11-10] MEDS: HYDROMORPHONE 1MG/1ML INJ IV PRN ×2 (02:58→07:45)
[2017-11-10 04:00] VITALS: BP 126/59
[2017-11-10 05:43] LABS: BASOPHILS % 0.4 % (0.0-1.0); EOSINOPHILS # (AUTO) 0.4 (0.0-0.4); EOSINOPHILS % 5.4 % (0.0-6.0); HEMATOCRIT 28.6 % (38.2-49.6); HEMOGLOBIN 9.8 g/dL (14.0-18.0); LYMPHOCYTES # (AUTO) 1.4 (1.0-3.2); LYMPHOCYTES % 17.5 % (18.0-39.1); MEAN CORPUSCULAR HEMOGLOBIN 31.3 pg (28-32); MEAN CORPUSCULAR HGB CONC 34.3 g/dL (31-35); MEAN CORPUSCULAR VOLUME 91.4 fL (81-99); MONOCYTES # (AUTO) 0.7 (0.2-0.8); MONOCYTES % 8.1 % (4.4-11.3); NEUTROPHILS # (AUTO) 5.4 (2.1-6.9); PLATELET COUNT 200 x10e3/uL (140-360); RED BLOOD COUNT 3.13 x10e6/uL (4.3-5.7); RED CELL DISTRIBUTION WIDTH 13.6 % (11.7-14.4)
[2017-11-10] MEDS: PIPER-TAZ 3.375 GM 50 ML IV SCH ×3 (05:58→18:01)
[2017-11-10 05:59] LABS: ALANINE AMINOTRANSFERASE 113 IU/L (0-55); ALBUMIN 2.6 g/dL (3.5-5.0); ALBUMIN/GLOBULIN RATIO 0.7 (0.8-2.0); ALKALINE PHOSPHATASE 140 IU/L (40-150); ANION GAP 11.9 mmol/L (8-16); BLOOD UREA NITROGEN 9 mg/dL (7-26); BUN/CREATININE RATIO 11 (6-25); CALCIUM 8.9 mg/dL (8.4-10.2); CARBON DIOXIDE 26 mmol/L (22-29); CHLORIDE 101 mmol/L (98-107); CREATININE, SERUM 0.81 mg/dL (0.72-1.25); EST GLOMERULAR FILTRATION RATE > 60 ML/MIN (60-); GLUCOSE 104 mg/dL (74-118); POTASSIUM 3.9 mmol/L (3.5-5.1); SODIUM 135 mmol/L (136-145)
[2017-11-10] MEDS: ONDANSETRON HCL INJ 2 MG/ML VIAL IV PRN (07:45)
[2017-11-10 08:07] VITALS: BP 143/74
[2017-11-10] MEDS ORDERED: IOPAMIDOL 300MG/ML 50ML INFUS..BTL IV ONE (11:27)
[2017-11-10] MEDS ORDERED: ROCURONIUM BROMIDE 10 MG/ML 5ML VIAL IV ONE (12:47)
[2017-11-10] MEDS ORDERED: GLYCOPYRROLATE INJ 1MG/ 5 ML SYR IV ONE (12:47)
[2017-11-10] MEDS ORDERED: LIDOCAINE HCL 2% LOCAL INJ 5 ML SDV VIAL INJ ONE (12:47)
[2017-11-10] MEDS ORDERED: NEOSTIGMINE 1 MG/ML 10ML VIAL IV ONE (12:47)
[2017-11-10] MEDS ORDERED: PROPOFOL IV EMULSION 10 MG/ML 20 ML VIAL IV ONE (12:47)
[2017-11-10] MEDS ORDERED: SEVOFLURANE INHAL SOLN 250 ML PEN BTL INH ONE (12:47)
[2017-11-10] MEDS ORDERED: ONDANSETRON HCL INJ 2 MG/ML VIAL IV ONE (12:47)
--- NOTE | 2017-11-10 13:29 | Diagnostic Imaging Report ---
Exam: ERCP performed by the provider. Multiple fluoroscopic images obtained. TECHNIQUE: Multiple fluoroscopic images obtained for ERCP performed by the provider. RADIATION DOSE: Fluoroscopy Time: 1 min Dose (Kerma) Area Product: 756.7 cGycm2 Air Kerma (AK) value has been reviewed. It is below the limits set by the Radiation Protocol Committee (RPC) committee. HISTORY: Cholecystectomy COMPARISON: MRCP 11/08/2017 DISCUSSION: ENT NURSE: Endoscopic tube overlying the right upper quadrant with tip overlying the duodenum. Cholecystectomy clips overlying the right upper quadrant. No filling defects within the common bile duct and intrahepatic biliary ducts on limited evaluation. Normal caliber of the intra and extrahepatic biliary ducts. IMPRESSION: No filling defects within the biliary ducts on limited evaluation. Signed by: Dr. Tessa Rios M.D. on 11/10/2017 1:26 PM
[2017-11-10 16:13] VITALS: BP 131/63
[2017-11-10] MEDS: PANTOPRAZOLE 40 MG 10ML VIAL IV SCH (18:01)
[2017-11-10] MEDS ORDERED: MIDAZOLAM HCL 2 MG/2 ML VIAL ONE (19:15)
[2017-11-10] MEDS ORDERED: FENTANYL CITRATE/PF 100MCG/2 ML INJ ONE (19:15)
[2017-11-10 20:07] VITALS: BP 142/77
[2017-11-10 20:08] VITALS: BP 142/77
[2017-11-11] MEDS: PIPER-TAZ 3.375 GM 50 ML IV SCH (00:04)
[2017-11-11 00:09] VITALS: BP 122/63
[2017-11-11] MEDS: HYDROCODONE/APAP 5MG-325MG TAB PO PRN ×2 (01:03→09:36)
[2017-11-11 04:00] VITALS: BP 137/79
[2017-11-11 06:34] LABS: ALANINE AMINOTRANSFERASE 121 IU/L (0-55); ALBUMIN/GLOBULIN RATIO 0.7 (0.8-2.0); ALKALINE PHOSPHATASE 159 IU/L (40-150); ANION GAP 15.6 mmol/L (8-16); BLOOD UREA NITROGEN 11 mg/dL (7-26); BUN/CREATININE RATIO 13 (6-25); CALCIUM 9.6 mg/dL (8.4-10.2); CARBON DIOXIDE 25 mmol/L (22-29); CHLORIDE 102 mmol/L (98-107); CREATININE, SERUM 0.85 mg/dL (0.72-1.25); EST GLOMERULAR FILTRATION RATE > 60 ML/MIN (60-); GLUCOSE 110 mg/dL (74-118); POTASSIUM 3.6 mmol/L (3.5-5.1); SODIUM 139 mmol/L (136-145)
[2017-11-11] MEDS: ACETAMINOPHEN 325 MG TAB PO PRN (06:37)
[2017-11-11 09:22] VITALS: BP 147/70
[2017-11-11] MEDS: PANTOPRAZOLE 40 MG 10ML VIAL IV SCH (09:36)
[2017-11-11 09:43] VITALS: BP 147/70
[2017-11-11 13:42] VITALS: BP 133/60
[2017-11-11] MEDS ORDERED: PROPOFOL IV EMULSION 10 MG/ML 50 ML VIAL IV ONE (14:21)
[2017-11-11] MEDS ORDERED: LIDOCAINE HCL 2% LOCAL INJ 5 ML SDV VIAL INJ ONE (14:21)
[2017-11-11] MEDS ORDERED: DEXAMETHASONE SOD PHOS INJ 4 MG/ML VIAL IV ONE (14:21)
[2017-11-11] MEDS ORDERED: ONDANSETRON HCL INJ 2 MG/ML VIAL IV ONE (14:21)
--- NOTE | 2017-11-11 20:36 | Progress Note ---
DATE: November 11, 2017 SUBJECTIVE: Patient reports no significant improvement in abdominal pain. Tolerating oral diets. Regular bowel movement. REVIEW OF SYSTEMS GENERAL: No fever or chills. RESPIRATORY: No cough or expectoration. CVS: No chest pain or palpitation. MEDICATIONS: Reviewed as per APR. PHYSICAL EXAMINATION VITAL SIGNS: Temperature 98.2, pulse 68, respirations 18, blood pressure 133/60, and oxygen saturation 94% on room air. GENERAL: Not in any apparent distress. HEENT: Oral mucosa is moist. Slightly icteric sclerae. ABDOMEN: Soft. Mild right upper quadrant tenderness on deep palpation. No rebound, rigidity, or guarding. Positive bowel sounds. LABS: WBC 7.98, hemoglobin has come down to 9.8 from 10.2, hematocrit 28.6, MCV 91.4, and platelet count 200. Sodium 139, potassium 3.6, chloride 102, bicarb 25, BUN 11, and creatinine 0.85. Liver enzymes showed a total bilirubin has further come down to 3.8, AST 44, ALT 121, and alkaline phosphatase 159. ASSESSMENT 1. Status post repeat endoscopic retrograde cholangiopancreatography with cholangiogram with sweeping of the common bile duct, this did not result into removal of any stone. Occlusion cholangiogram showed no filling defect in the common bile duct. 2. Sphincterotomy site did not show any stigmata of bleeding. PLAN: Liver enzymes are trending down as expected. Patient can be discharged from GI standpoint. We will follow him outpatient. We will follow him in my office within 2 weeks. Patient's has my business card. They will call my office to set up an appointment. Job#: [id number] KRISH
== END 2017-11-11 14:29 | disposition home or self-care (01) | DRG 418 ==
LOC: ER 16:12 → ERHOLD 21:16 → MED/SURG 11-04 16:29 → OBSVTOIN 11-06 08:13
PROVIDERS: ADMIT Family Medicine; ATTEND Family Medicine
PROC: BF141ZZ Fluoroscopy of Gallbladder, Bile Ducts and Pancreatic Ducts using Low Osmolar Contrast (ICD-10-PCS; 2017-11-05)
PROC: 0FC98ZZ Extirpation of Matter from Common Bile Duct, Via Natural or Artificial Opening Endoscopic (ICD-10-PCS; principal; 2017-11-05 08:00)
PROC: 0FT44ZZ Resection of Gallbladder, Percutaneous Endoscopic Approach (ICD-10-PCS; 2017-11-06)
PROC: 0DJ08ZZ Inspection of Upper Intestinal Tract, Via Natural or Artificial Opening Endoscopic (ICD-10-PCS; 2017-11-08)
PROC: 0FC98ZZ Extirpation of Matter from Common Bile Duct, Via Natural or Artificial Opening Endoscopic (ICD-10-PCS; 2017-11-11)
PROC: 0F798ZZ Dilation of Common Bile Duct, Via Natural or Artificial Opening Endoscopic (ICD-10-PCS; 2017-11-11)
PROC: BF101ZZ Fluoroscopy of Bile Ducts using Low Osmolar Contrast (ICD-10-PCS; 2017-11-11)
DX: K80.65 Calculus of gallbladder and bile duct with chronic cholecystitis with obstruction (principal); K91.840 Postprocedural hemorrhage of a digestive system organ or structure following a digestive system procedure; K91.86 Retained cholelithiasis following cholecystectomy; R50.82 Postprocedural fever; Y84.8 Other medical procedures as the cause of abnormal reaction of the patient, or of later complication, without mention of misadventure at the time of the procedure; G47.33 Obstructive sleep apnea (adult) (pediatric); I10 Essential (primary) hypertension; K76.0 Fatty (change of) liver, not elsewhere classified; E78.5 Hyperlipidemia, unspecified; E66.9 Obesity, unspecified; Z68.35 Body mass index [BMI] 35.0-35.9, adult; K21.9 Gastro-esophageal reflux disease without esophagitis; K70.10 Alcoholic hepatitis without ascites
CPT/HCPCS: 36415; 43235; 43260; 71045; 74177; 74183; 74328; 76705; 80048; 80053; 80076; 81001; 82150; 82248; 82550; 82553; 83690; 84484; 85007; 85025; 85027; 85610; 85730; 88304; 93005; 96361; 96367; 99284; G0378; J0171; J0694; J1100; J1170; J1610; J1885; J1940; J2001; J2250; J2405; J2543; J2710; J7120; Q9966; Q9967